=== PATIENT | male | born 1965 | race Caucasian/White ===

== ENCOUNTER 2017-02-18 12:49 | Observation (INO) | payer OTHER ==
--- NOTE | 2017-02-18 13:04 | CPEKG ---
Heart Rate: 56 RR Interval: 1071 P-R Interval: 156 QRSD Interval: 112 QT Interval: 424 QTC Interval: 410 P Mohawk: 17 QRS Mohawk: -23 T Wave Mohawk: 39 EKG Severity - ABNORMAL ECG - EKG Impression: SINUS RHYTHM EKG Impression: NONSPECIFIC INTRAVENTRICULAR CONDUCTION DELAY Electronically Signed By: Galdino Belle 18-Feb-2017 17:14:37
[2017-02-18] MEDS: ASPIRIN 81 MG CHEWABLE TAB PO ONE ×2 (13:28→13:30)
--- NOTE | 2017-02-18 13:33 | EDPHY ---
H & P Time Seen by Provider: 02/18/17 13:12 HPI/ROS: Chief complaint. Chest pain HPI. 51-year-old male visiting from [facility] early developed chest pain today. He was driving to [place] to go hiking and he developed chest tightness that radiates to the left arm. He had similar episode last evening when he was walking to a [email or web address] baseball game. Symptoms are worse with exertion better with rest. They arrived from [place] 5 days ago. He has had a slight cough but no shortness of breath. No abdominal pain. No unusual leg pain or swelling. He was diagnosed with hypertension 2 years ago and takes to antihypertensive medications. His tells me he has been under a lot of stress recently. He did take aspirin prior to arrival. ROS Constitutional. no fever/chills, no weakness Eyes. no problems with vision ENT. no sore throat, no nasal drainage Cardiovascular. Chest tightness Respiratory. no shortness of breath, no cough Abdominal. no abdominal pain, no nausea/vomiting, no diarrhea . no problems urinating MS. no calf pain/swelling, no neck/back pain, no joint pain Skin. no rash Lymph. no swollen glands Neuro. no headache, no dizziness, no difficulty walking or with speech Past Medical/Surgical History: Hypertension Denies family history of cardiac disease Social History: , nonsmoker, no alcohol Smoking Status: Never smoked Physical Exam: General Appearance: Alert well-developed male mild distress vital signs significant for blood pressure 192/103 Eyes: Pupils equal and round no pallor or injection. ENT, Mouth: Mucous membranes are moist. Respiratory: There are no retractions, lungs are clear to auscultation. Cardiovascular: Regular rate and rhythm. Gastrointestinal: Abdomen is soft and nontender, no masses, bowel sounds normal. Neurological: Awake and alert, sensory and motor exams grossly normal. Skin: Warm and dry, no rashes. Musculoskeletal: Neck is supple nontender. Extremities symmetrical, full range of motion. Psychiatric: Patient is oriented X 3, there is no agitation. Constitutional: Initial Vital Signs Temperature (C) 36.7 C 02/18/17 12:54 Heart Rate 58 L 02/18/17 12:54 Respiratory Rate 16 02/18/17 12:54 Blood Pressure 192/103 H 02/18/17 12:54 O2 Sat (%) 95 02/18/17 12:54 O2 Delivery Mode Room Air Allergies/Adverse Reactions: No Known Allergies Allergy (Unverified 02/18/17 12:56) Home Medications: Medication Instructions Recorded Valsartan [Diovan (*)] 160 mg PO DAILY 02/18/17 amLODIPine BESYLATE [Norvasc 5 mg 5 mg PO DAILY 02/18/17 (*)] Medical Decision Making - Diagnostics EKG Interpretation: EKG interpreted by me shows normal sinus rhythm with normal interval. Left axis deviation. Mild interventricular conduction delay. No significant ST elevation or depression. No arrhythmia. The rate is 56 Imaging Results: Imaging Impressions Chest X-Ray 02/18/17 13:13 Impression: No acute findings in the chest One-view chest x-ray interpreted by me is normal Procedures: IV normal saline, monitor. Aspirin in the ED ED Course/Re-evaluation: Re-evaluation 2:25 p.m.--patient is stable and currently without chest discomfort. The patient, his , and I discussed lab imaging EKG findings. I recommended admission for further evaluation for this patient. They expressed understanding and agreement I consulted and discussed case with Dr. Barrios for Cardiology. He will see the patient in the hospital I consulted and discussed case with Dr. Mistry, hospitalist, who sees the patient in the emergency department Differential Diagnosis: Clearly it appears that this patient is having unstable angina. I think he has likely a coronary arterial obstruction. No evidence for acute NC at this point. Plan will be admission and further cardiac evaluation - Data Points Laboratory Results: Laboratory Results 02/18/17 13:04 02/18/17 13:04 02/18/17 02/18/17 02/18/17 13:29 13:04 13:04 WBC RBC Hgb Hct MCV MCH MCHC RDW Plt Count MPV Neut % (Auto) Lymph % (Auto) Freeborn % (Auto) Eos % (Auto) Baso % (Auto) Nucleat RBC Rel Count Absolute Neuts (auto) Absolute Lymphs (auto) Absolute Monos (auto) Absolute Eos (auto) Absolute Basos (auto) Absolute Nucleated RBC Immature Gran % Immature Gran # D-Dimer < 0.27 ug/mLFEU ug/mLFEU (0.00-0.50) Sodium 145 mEq/L H mEq/L (134-144) Potassium 3.9 mEq/L mEq/L (3.5-5.2) Chloride 106 mEq/L mEq/L (97-110) Carbon Dioxide 24 mEq/l mEq/l (22-31) Anion Gap 15 mEq/L mEq/L (8-16) BUN 14 mg/dL mg/dL (7-23) Creatinine 1.0 mg/dL mg/dL (0.7-1.3) Estimated GFR > 60 Glucose 95 mg/dL mg/dL (70-100) Hemoglobin A1c 5.5 % % (4.0-6.0) Estim Average Glucose 111 mg/dL mg/dL (68-126) Calcium 9.2 mg/dL mg/dL (8.5-10.4) Troponin I < 0.012 ng/mL ng/mL (0-0.034) NT-Pro-B Natriuret Pep 02/18/17 02/18/17 13:04 13:00 WBC 9.80 10^3/uL H 10^3/uL (3.80-9.50) RBC 4.93 10^6/uL 10^6/uL (4.40-6.38) Hgb 14.7 g/dL g/dL (13.7-17.5) Hct 42.0 % % (40.0-51.0) MCV 85.2 fL fL (81.5-99.8) MCH 29.8 pg pg (27.9-34.1) MCHC 35.0 g/dL g/dL (32.4-36.7) RDW 12.7 % % (11.5-15.2) Plt Count 285 10^3/uL 10^3/uL (150-400) MPV 9.6 fL fL (8.7-11.7) Neut % (Auto) 73.9 % % (39.3-74.2) Lymph % (Auto) 18.3 % % (15.0-45.0) Freeborn % (Auto) 5.3 % % (4.5-13.0) Eos % (Auto) 1.2 % % (0.6-7.6) Baso % (Auto) 0.6 % % (0.3-1.7) Nucleat RBC Rel Count 0.2 % % (0.0-0.2) Absolute Neuts (auto) 7.24 10^3/uL H 10^3/uL (1.70-6.50) Absolute Lymphs (auto) 1.79 10^3/uL 10^3/uL (1.00-3.00) Absolute Monos (auto) 0.52 10^3/uL 10^3/uL (0.30-0.80) Absolute Eos (auto) 0.12 10^3/uL 10^3/uL (0.03-0.40) Absolute Basos (auto) 0.06 10^3/uL 10^3/uL (0.02-0.10) Absolute Nucleated RBC 0.02 10^3/uL H 10^3/uL (0-0.01) Immature Gran % 0.7 % % (0.0-1.1) Immature Gran # 0.07 10^3/uL 10^3/uL (0.00-0.10) D-Dimer Sodium Potassium Chloride Carbon Dioxide Anion Gap BUN Creatinine Estimated GFR Glucose Hemoglobin A1c Estim Average Glucose Calcium Troponin I NT-Pro-B Natriuret Pep 84 pg/mL pg/mL (0-125) Medications Given: Discontinued Medications Aspirin (Aspirin) 324 mg PO EDNOW ONE Stop: 02/18/17 13:13 Last Admin: 02/18/17 13:30 Dose: Not Given Departure - Departure Disposition: [facility] Clinical Impression: Chest pain Qualifiers: Chest pain type: chest pain due to myocardial ischemia Condition: Fair
[2017-02-18 13:34] LABS: % IMMATURE GRANULYOCYTES 0.7 % (0.0-1.1); ABSOLUTE IMMATURE GRANULOCYTES 0.07 10^3/uL (0.00-0.10); ABSOLUTE NRBC COUNT 0.02 10^3/uL (0-0.01); ADD DIFF? NO; ADD MORPH? NO; ADD SCAN? NO; ATYPICAL LYMPHOCYTE FLAG 0 (0-99); FRAGMENT RBC FLAG 0 (0-99); HEMOGLOBIN 14.7 g/dL (13.7-17.5); LEFT SHIFT FLG 0 (0-99); LIPEMIA HEMOLYSIS FLAG 90 (0-99); MEAN CELL HEMOGLOBIN 29.8 pg (27.9-34.1); MEAN CELL VOLUME 85.2 fL (81.5-99.8); MEAN PLATELET VOLUME 9.6 fL (8.7-11.7); NRBC-AUTO% 0.2 % (0.0-0.2); PLATELET CLUMPS FLAG 0 (0-99); PLATELET COUNT 285 10^3/uL (150-400); RED BLOOD CELL COUNT 4.93 10^6/uL (4.40-6.38); RED CELL DISTRIBUTION WIDTH 12.7 % (11.5-15.2)
[2017-02-18 13:43] LABS: ANION GAP 15 mEq/L (8-16); CALCIUM 9.2 mg/dL (8.5-10.4); CARBON DIOXIDE 24 mEq/l (22-31); CHLORIDE 106 mEq/L (97-110); GLOMERULAR FILTRATION RATE > 60; GLUCOSE 95 mg/dL (70-100); POTASSIUM 3.9 mEq/L (3.5-5.2); SODIUM 145 mEq/L (134-144)
[2017-02-18 13:55] LABS: TROPONIN I < 0.012 ng/mL (0-0.034)
[2017-02-18] MEDS ORDERED: ACETAMINOPHEN 325 MG TAB PO PRN (14:44)
[2017-02-18] MEDS ORDERED: ONDANSETRON 4 MG/2 ML VIAL IVP PRN (14:44)
[2017-02-18] MEDS ORDERED: ONDANSETRON DISINTEGRATING 4 MG TAB PO PRN (14:44)
[2017-02-18] MEDS ORDERED: NITROGLYCERIN 0.4 MG BTL SL PRN (15:01)
[2017-02-18] MEDS ORDERED: TEMAZEPAM 15 MG CAP PO PRN (15:47)
--- NOTE | 2017-02-18 15:54 | GHP ---
[f rep st] HISTORY AND PHYSICAL DATE OF ADMISSION: 02/18/2017 CHIEF COMPLAINT: Chest tightness. HISTORY OF PRESENT ILLNESS: A 51-year-old male with history of hypertension, presenting from Urgent Care with chest tightness. He is here visiting [place] from [place], has been here for a week. He has done a couple of hikes in [place], at [place], and neighborhoods without issue. However, last night, he was walking to the [employer] and developed left- sided chest tightness and some tingling in both pinkies. This recurred again when walking home from the game. He felt as though he was not feeling right in his head. He could not tell me how long these episodes lasted. Denied associated nausea, vomiting, diaphoresis or shortness of breath. He felt "off" again today, driving up to [employer]. They stopped in [place], he felt kind of ill. They went to a shop with a lot of incense and he had a metallic taste for 15 minutes that resolved after drinking a lot a water. When walking to some other shops, he again developed left-sided chest tightness and numbness in the left arm. He has been under lot of stress at work and under-staffed. 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 He says he had a similar episode 2 years ago and went to the emergency room, was found to have elevated blood pressure. He had an EKG but no stress. At that time, he was started on antihypertensives. At home, his blood pressures run systolics 140s. REVIEW OF SYSTEMS: I completed a 10-point review of systems, negative except as noted in HPI. PAST MEDICAL HISTORY: Hypertension. SURGICAL HISTORY: None. 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 Drinks alcohol daily. No tobacco, no illicits. MEDICATIONS: Losartan and amlodipine. ALLERGIES: No known drug allergies. FAMILY HISTORY: Maternal grandfather with CVA. Mother with CAD and stents. Other family history includes diabetes, hypertension. PHYSICAL EXAM: VITAL SIGNS: Blood pressure 192/103 at admission, now 165/86, heart rate in the 50s, respirations 16, 91% on room air. GENERAL: Well- appearing male, mildly overweight, in no acute distress. HEENT: PERRLA, EOMI. Oropharynx clear. CARDIOVASCULAR: Bradycardiac, but regular. No murmurs, gallops or rubs. No lower extremity edema. LUNGS: Clear. No crackles. ABDOMEN: Soft, nontender, nondistended. Positive bowel sounds. : No suprapubic tenderness. MUSCULOSKELETAL: 5/5 upper and lower extremity strength. NEURO: 2 through 12 intact. PSYCH: Alert and oriented x3. LABS: Sodium 141, potassium 3.9, chloride 106, carbon dioxide 24, anion gap 15 , creatinine 1, glucose 95, troponin less than 0.012. BNP is 84, D-dimer is negative. WBC is 9.8, hemoglobin 14, hematocrit 42, platelets 285. Chest x-ray, personally reviewed by me. No effusion or opacity. EKG was personally reviewed by me. Bradycardic with IVCD. No old to compare. ASSESSMENT/PLAN: 1. Chest pressure: Differential includes acute coronary syndrome versus pulmonary embolism versus infection versus GERD. Negative dimer. No evidence of PNA , afebrile without white count. Concerning for angina with constellation of symptoms given personal history of hypertension and family history. Initial troponin and EKG are negative, repeating. Monitor on telemetry and PCU. Check lipids, A1c. Plan for cath in morning. PRN morphine, SL nitro. 2. Accelerated hypertension: Improved since admission. We will resume home medications tomorrow. 3. Diet: N.p.o. for now. 4. DVT prophylaxis: Low risk, ambulatory. DISPOSITION: The patient warrants observation admission given acute chest pressure concerning for ACS, requiring serial enzymes and telemetry. /[id number]/MODL MTDD
[2017-02-18 16:06] LABS: HEMOGLOBIN A1C 5.5 % (4.0-6.0)
[2017-02-18] MEDS ORDERED: hydrALAZINE 25 MG TAB PO PRN (20:10)
--- NOTE | 2017-02-19 01:00 | GCON ---
[f rep st] CONSULTATION CARDIOLOGY CONSULTATION. DATE OF CONSULTATION: 02/18/2017 PRIMARY CARE PHYSICIAN: Out of state. REASON FOR CONSULTATION: We were asked by Dr. Mistry of [facility] to evaluate this patient for his chest discomfort. HISTORY OF PRESENT ILLNESS: The patient is a 51-year-old male who has a history of hypertension, ob esity with a BMI of 36, who is visiting from [place]. He reports arriving approximately 5 days ago . He was feeling fine with activities up until yesterday. Yesterday, he was at a [employer] game and had ridden the train to the game. He noted lightheadedness primarily and a midsternal chest tightne ss that was [id number] in intensity. This progressed to a feeling of left arm tingling with a ssociated bilateral pinky numbness. The chest tightness mostly resolved through the course of the g wojciech. At dinner that night he felt poor appetite. He was able to sleep and today he was on his way to [employer]. They were driving through [place] and stopped there. He then noted the onset of l ightheadedness with the associated bilateral arm and shoulder numbness and tingling. Due to feeling poorly, he asked his family to bring him to the emergency department for further evaluation. Rolane ntly, he is pain free and has not had any lightheadedness as he is supine. He denies any previous e pisodes of this in the past. He reports blood pressure has been in the 140-150 range despite being on medical therapy for the past of couple years. REVIEW OF SYSTEMS: Pertinent for recent cough and sneezing. He does not feel that he has a URI. M ostly he feels he has seasonal allergies. He denies any other recent illness. FAMILY HISTORY: Mother with stent at age 75. SOCIAL HISTORY: He is . His is present at bedside. He is in a nonsmoker and reports r are alcohol intake. MEDICATIONS: Outpatient medications are reconciled to be amlodipine and valsartan. ALLERGIES: No known drug allergies. PHYSICAL EXAM: VITAL SIGNS: BP of 165/86, heart rate 55, respirations 91% on room air, temp of 98. 8 degrees Fahrenheit. GENERAL: He is a pleasant male in no apparent distress. EYES: MERRILL without scleral icterus. NECK: Thick with no JVD. HEART: Regular rate and rhythm. No rubs, gallops, or murmurs. LUNGS: Clear to auscultation. ABDOMEN: Obese, with normoactive bowel sounds. SKIN: W arm and dry. PSYCH: Normal mood and affect for given situation. NEURO: No focal deficits detecte d. : No Krishnan present. LAB: CBC with WBC 9.8, hemoglobin 14.7, hematocrit 42, platelet count of 285. BMP with sodium 145, potassium 3.9, chloride 106, CO2 24, BUN 14, creatinine 1. Glucose of 195. Troponin less than 0.0 12. NT proBNP of 84. A 12-lead ECG, personally interpreted, demonstrates sinus rhythm with a leftward axis and nonspecifi c interventricular conduction delay. Chest x-ray is negative. I spoke with both Dr. Belle and Dr. Mistry about patient's care. IMPRESSION AND PLAN: The patient is a 51-year-old male, presenting with symptoms suggestive of unst able angina. 1. Unstable angina. The patient is currently pain free. ECG and enzymes are negative thus far. W e reviewed options. Patient is agreeable to left heart catheterization for further evaluation. Ris ks, benefits and alternatives were reviewed. 2. Hypertension. Blood pressure does not appear adequately controlled. We will follow and continu e outpatient medications in this admission. 3. Obesity. BMI is elevated. The patient will need outpatient followup for this. /[id number]/MODL
[2017-02-19 05:02] LABS: % IMMATURE GRANULYOCYTES 0.5 % (0.0-1.1); ABSOLUTE IMMATURE GRANULOCYTES 0.05 10^3/uL (0.00-0.10); ADD DIFF? NO; ADD MORPH? NO; ADD SCAN? NO; ATYPICAL LYMPHOCYTE FLAG 0 (0-99); FRAGMENT RBC FLAG 0 (0-99); HEMATOCRIT 42.9 % (40.0-51.0); HEMOGLOBIN 14.7 g/dL (13.7-17.5); LEFT SHIFT FLG 0 (0-99); LIPEMIA HEMOLYSIS FLAG 90 (0-99); MEAN CELL HEMOGLOBIN 29.6 pg (27.9-34.1); MEAN CELL HEMOGLOBIN CONCENTR. 34.3 g/dL (32.4-36.7); MEAN CELL VOLUME 86.5 fL (81.5-99.8); MEAN PLATELET VOLUME 9.6 fL (8.7-11.7); PLATELET CLUMPS FLAG 0 (0-99); PLATELET COUNT 258 10^3/uL (150-400); RED BLOOD CELL COUNT 4.96 10^6/uL (4.40-6.38); RED CELL DISTRIBUTION WIDTH 12.9 % (11.5-15.2)
[2017-02-19 05:03] LABS: PROTIME(PATIENT) 13.1 SEC (12.0-15.0)
[2017-02-19 05:04] LABS: APTT 25.9 SEC (23.0-38.0)
[2017-02-19 05:08] LABS: ANION GAP 13 mEq/L (8-16); CALCIUM 9.2 mg/dL (8.5-10.4); CARBON DIOXIDE 26 mEq/l (22-31); CHLORIDE 107 mEq/L (97-110); CHOLESTEROL 154 mg/dL (140-220); CREATININE 1.1 mg/dL (0.7-1.3); GLOMERULAR FILTRATION RATE > 60; GLUCOSE 88 mg/dL (70-100); HIGH DENSITY LIPOPROTEIN 35 mg/dL (40-65); LDL/HDL RATIO 2.89 RATIO (1.00-3.64); LOW DENSITY LIPOPROTEIN 101 mg/dL (80-100); MAGNESIUM 2.4 mg/dL (1.6-2.3); NON-HIGH DENSITY LIPOPROTEIN 119 mg/dL (90-129); POTASSIUM 4.3 mEq/L (3.5-5.2); SODIUM 146 mEq/L (134-144); TRIGLYCERIDE 93 mg/dL (40-150); VERY LOW DENSITY LIPOPROTEINS 18 mg/dL (8-25)
[2017-02-19] MEDS ORDERED: DIAZEPAM 5 MG TAB PO ONE (06:00)
[2017-02-19] MEDS ORDERED: diphenhydrAMINE 25 MG CAP PO ONE ×2 (06:00→08:02)
[2017-02-19] MEDS ORDERED: ASPIRIN EC 325 MG TAB PO ONE ×2 (06:00→08:02)
[2017-02-19] MEDS ORDERED: NS 1,000 ML IV ONE ×2 (06:00→11:59)
[2017-02-19] MEDS ORDERED: FAMOTIDINE 20 MG TAB ONE (08:02)
[2017-02-19] MEDS ORDERED: DIAZEPAM 5 MG TAB ONE (08:03)
[2017-02-19] MEDS ORDERED: MIDAZOLAM 2 MG/2 ML VIAL ONE (08:48)
[2017-02-19] MEDS ORDERED: fentaNYL 100 MCG/2 ML INJ ONE (08:48)
[2017-02-19] MEDS ORDERED: ASPIRIN 325 MG TAB PO SCH (09:00)
[2017-02-19] MEDS ORDERED: VALSARTAN 160 MG TAB PO SCH (09:00)
[2017-02-19] MEDS ORDERED: amLODIPine BESYLATE 5 MG TAB PO SCH (09:00)
[2017-02-19] MEDS ORDERED: ATROPINE SULFATE 1 MG/10 ML SYR IVP PRN (09:14)
--- NOTE | 2017-02-19 09:17 | PDDXCAT ---
Diagnostic Cath Note - . 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 Angiographically normal coronary arteries. 2. Normal LV systolic function without regional wall motion abnormalities. 3. Normal filling pressures. Patient Problems: Problems Problem Status Onset Chest pain Acute
[2017-02-19 12:26] VITALS: RESP 18; TEMP 98.1
[2017-02-19 12:37] VITALS: BP 138/78; PULSE 48; O2SAT 95
--- NOTE | 2017-02-20 05:59 | GDS ---
[f rep st] DISCHARGE SUMMARY DISCHARGE DIAGNOSES: 1. Chest pain with negative cardiac catheterization. 2. Dehydration with hypernatremia. 3. Hypertension. HISTORY: The patient is a 51-year-old male visiting from [place] where he has been developing ches t pain through various active events while on vacation. He came into the emergency room, had negati ve troponins and EKGs. Cardiology was consulted, and there was a very concerning history, so he was brought to cardiac catheterization, which was actually negative for any coronary artery disease. H is D-dimer was negative. Given his high sodium at 146, I do suspect he has an element of dehydratio n possibly due to being new to altitude. He was given some IV fluids prior to discharge, but otherw ise should do well and can return to [place]. DISCHARGE MEDICATIONS: Please see computer record for full detailed list. No new medications given at the time of hospital discharge. ADDITIONAL DISCHARGE INSTRUCTIONS: Okay to travel back to [place] and follow up with primary care there. Patient seen and examined by me on the day of discharge. /[id number]/MODL
== END 2017-02-19 14:43 | disposition home or self-care (01) ==
LOC: INTOOBSV 14:35 → F2W 15:49
PROVIDERS: ADMIT Internal Medicine; ATTEND Internal Medicine
PROC: B2111ZZ Fluoroscopy of Multiple Coronary Arteries using Low Osmolar Contrast (ICD-10-PCS; principal; 2017-02-19)
PROC: B2151ZZ Fluoroscopy of Left Heart using Low Osmolar Contrast (ICD-10-PCS; principal; 2017-02-19)
PROC: 4A023N7 Measurement of Cardiac Sampling and Pressure, Left Heart, Percutaneous Approach (ICD-10-PCS; principal; 2017-02-19)
DX: R07.9 Chest pain, unspecified (principal); E86.0 Dehydration; E87.0 Hyperosmolality and hypernatremia; I10 Essential (primary) hypertension; E66.9 Obesity, unspecified; Z68.36 Body mass index [BMI] 36.0-36.9, adult; Z56.3 Stressful work schedule; Z82.49 Family history of ischemic heart disease and other diseases of the circulatory system
CPT/HCPCS: 71010; 93005; 93458; 99285; C1769; G0378; J2250; J3010